=== PATIENT | male | born 1945 | race Hispanic/Latino ===

== ENCOUNTER → 2017-03-15 | Outpatient (CLI) | payer OTHER | END | disposition home or self-care (01) | LOC: SHCH 08:05 | PROVIDERS: ATTEND Internal Medicine Cardiovascular Disease | DX: I51.7 Cardiomegaly (principal); I10 Essential (primary) hypertension | CPT/HCPCS: 93306 ==

== ENCOUNTER 2021-12-29 15:05 | Emergency (ER) | payer OTHER ==
[~2021-12-29] VITALS: Ht 167.6 cm; Wt 92.5 kg
[2021-12-29] MEDS ORDERED: ACETAMINOPHEN 500 MG TABLET PO SCH (16:00)
[2021-12-29] MEDS ORDERED: IBUP-2070 PO (16:36)
[2021-12-29 16:41] VITALS: BP 142/75
== END 2021-12-29 16:58 | disposition home or self-care (01) ==
LOC: EDH 15:05
DX: S42.291A Other displaced fracture of upper end of right humerus, initial encounter for closed fracture (principal); S80.01XA Contusion of right knee, initial encounter; I10 Essential (primary) hypertension; Z88.5 Allergy status to narcotic agent; W18.30XA Fall on same level, unspecified, initial encounter; Y93.01 Activity, walking, marching and hiking; Y92.89 Other specified places as the place of occurrence of the external cause; Y99.8 Other external cause status
CPT/HCPCS: 70450; 72125; 73030; 73562

== ENCOUNTER → 2023-01-13 | Outpatient (CLI) | payer OTHER ==
[~2023-01-13] MED LIST: APIX5TAB PO; ATOR40TA69 PO; CHOL400T4 PO; POTA-364 PO; TAMS-1 PO
== END | disposition home or self-care (01) ==
LOC: SHCH 13:24
PROVIDERS: ATTEND Internal Medicine Cardiovascular Disease
DX: I08.0 Rheumatic disorders of both mitral and aortic valves (principal); R60.9 Edema, unspecified; E78.5 Hyperlipidemia, unspecified; I48.20 Chronic atrial fibrillation, unspecified; I10 Essential (primary) hypertension
CPT/HCPCS: 93306